=== PATIENT | male | born 1945 | race Caucasian/White ===

== ENCOUNTER 2018-06-04 09:32 | Inpatient (IN) | payer MEDICARE, BC ==
[2018-06-04 09:40] VITALS: BMI 30.7
--- NOTE | 2018-06-04 10:17 | ED PDOC ---
Arrival/HPI - General Chief Complaint: Back Pain Time Seen by Provider: 06/04/18 09:43 Historian: Patient - History of Present Illness Narrative History of Present Illness (Text): 06/04/18 10:12 72yr old male presents today with worsening low back pain. pt with a long standing history of back pain with herniated discs, states that he hasn't been very active because he was in the hospital for 9 days. pt states he was just discharged from the hospital last week and patient states the pain in the back and the left hip and has been gradually increasing. pt states today when he tried to get out of the bed he developed severe pain in the left lower back radiating in the left leg/hip. The patient told the triage nurse that he fell but the pt now states the pain was so severe that he almost fell but did not fall to the ground. Pt states he is feeling comfortable laying in bed and the pain worsens with movement. pt denies bladder or bowel incontinence. pt denies fever/chills. pt denies numbness, weakness or tingling in the extremities. pt denies chest pain or shortness of breath. denies headaches, dizziness or weakness. no abdominal pain. no n/v/d/c. pt states his appetite has been good. Symptom Onset: Gradual Symptom Course: Worsening Quality: Aching, Stabbing Severity Level: Mild Past Medical History - Provider Review Nursing Documentation Reviewed: Yes - Travel History Have you recently traveled outside [place] w/in the past 3 mons?: No - Tetanus Immunization Tetanus Immunization: Unknown - Cardiac Hx Hypertension: Yes - Psychiatric Hx Substance Use: No - Surgical History Hx Cardiac Catheterization: Yes Other/Comment: "Brain surgery" Family/Social History - Physician Review Nursing Documentation Reviewed: Yes Family/Social History: Unknown Family HX Smoking Status: Never Smoked Hx Alcohol Use: No Hx Substance Use: No Allergies/Home Meds Allergies/Adverse Reactions: Allergies morphine Allergy (Verified 06/04/18 09:42) ANGIOEDEMA Home Medications: Home Meds Medication Instructions Recorded Confirmed Aspirin [Ecotrin] 81 mg PO DAILY 06/04/18 06/04/18 Atorvastatin [Lipitor] 40 mg PO DAILY 06/04/18 06/04/18 Carvedilol [Coreg] 12.5 mg PO Q12 06/04/18 06/04/18 Hydrochlorothiazide [Microzide] 25 mg PO DAILY 06/04/18 06/04/18 Ticagrelor [Brilinta] 90 mg PO BID 06/04/18 06/04/18 Review of Systems - Review of Systems Constitutional: absent: Fatigue, Fevers Respiratory: absent: SOB, Cough Cardiovascular: absent: Chest Pain, Palpitations Gastrointestinal: absent: Abdominal Pain, Constipation, Diarrhea, Nausea, Vomiting Genitourinary Male: absent: Dysuria, Frequency, Hematuria, Urinary Output Changes Musculoskeletal: Arthralgias, Back Pain. absent: Neck Pain Skin: absent: Rash, Pruritis Neurological: absent: Headache, Dizziness Psychiatric: absent: Anxiety, Depression, Suicidal Ideation Physical Exam Vital Signs Reviewed: Yes Vital Signs Temp Pulse Resp BP Pulse Ox 06/04/18 14:15 98.3 F 76 18 136/88 99 06/04/18 11:32 78 18 115/86 99 06/04/18 09:39 97.7 F 80 17 162/87 H 97 Temperature: Afebrile Blood Pressure: Hypertensive Pulse: Regular Respiratory Rate: Normal Appearance: Positive for: Well-Appearing, Non-Toxic, Comfortable Pain Distress: None Mental Status: Positive for: Alert and Oriented X 3 - Systems Exam Head: Present: Atraumatic Mouth: Present: Moist Mucous Membranes Neck: Present: Normal Range of Motion Respiratory/Chest: Present: Clear to Auscultation, Good Air Exchange. No: Respiratory Distress, Accessory Muscle Use Cardiovascular: Present: Regular Rate and Rhythm. No: Tachycardic, Bradycardic , Gallop, Muffled Abdomen: Present: Normal Bowel Sounds. No: Tenderness, Distention, Rebound, Guarding Back: Present: Normal Inspection, Pain with Leg Raise (left leg: + straight leg raise), Other (+ left sided low back tenderness, sciatic foramen tenderness. no edema, no erythema; no ecchymosis. ). No: CVA Tenderness, Midline Tenderness, Paraspinal Tenderness Neurological: Present: GCS=15, Speech Normal, Motor Func Grossly Intact, Normal Sensory Function Psychiatric: Present: Alert, Oriented x 3, Normal Insight, Normal Concentration Medical Decision Making ED Course and Treatment: 06/04/18 10:26 72yr old male with hx of chronic back pain for years, worsening over the past 2 weeks. located in the left lower back/hip and sciatic foramen. case discussed with dr. raswant. toradol and flexeril given UA; pending. cbc; wnl cmp; wnl ct abd/pelvis: FINDINGS: No evidence of acute displaced fracture nor dislocation. . There are what appear to represent chronic appearing Schmorl's nodes and subchondral cystic changes along the L2-L3 endplates the cortical margins superior intact and the findings are not felt to represent discitis osteomyelitis . Similar but less severe and smaller changes seen along the L2-L3 and L1-L2 endplates as well. VERTEBRAE: No evidence of acute displaced fracture nor dislocation. DISCS/SPINAL CANAL/NEURAL FORAMINA: L1-2: Unremarkable. L2-3: There is disc space narrowing with broad-based bulge of the posterior annulus that extends into the proximal inferior margins of both exit foramina. Facets are prominent. There is mild flattening of the ventral surface of the thecal sac with mild bilateral lateral recess narrowing. . The overall central canal appears adequate. Proximal exit foramina are narrowed bilaterally. . L3-4: Mild posterior disc space narrowing. The small broad-based disc bulge ridge complex flattens the ventral surface of the thecal sac with mild bilateral lateral recess narrowing. The central canal appears adequate. Facets a prominent. Proximal left exit foramen is narrowed. Right exit foramen marginal. . L4-5: Mild posterior disc space narrowing. Small broad-based though slightly asymmetric disc bulge ridge complex (right slightly larger than left) with a small proximal right foraminal protrusion component. There is associated small curvilinear calcification of the annulus or posterior longitudinal ligament noted. . There is mild compressive effects on the ventral surface of the thecal sac more so on the right side with bilateral lateral recess narrowing right greater than left. Facets also mildly hypertrophic. Right exit foramen is stenotic. Left exit foramen adequate. L5-S1: Disc space height maintained. No disc herniation or significant disc bulge. Central canal appears adequate. Facets are slightly prominent however the exit foramina adequate. PARASPINAL SOFT TISSUES: Unremarkable. OTHER FINDINGS: There are small cystic changes left kidney 1 of which is exophytic arising from the posterolateral cortex mid pole left kidney. This focus demonstrates 2 hyperdense foci along its anterior border. . These foci of uncertain etiology though could represent a 2 adjacent hyperdense daughter cyst. Followup studies could be performed to exclude any solid component/ mass. Few small cysts right kidney also noted. Urinary bladder is incompletely distended which in part accounts for thick- walled appearance however muscular hypertrophy presumably contributes. Rule out cystitis. Slightly nodular appearing bilateral adrenal glands. IMPRESSION: No acute fractures. Multilevel degenerative spondylosis most notably affecting See above discussion for additional details findings and recommendations. pt reassessment; pt with continued pain upon movement. comfortable in bed. due to inability to ambulate and fall risk, will admit observational status for pain management and PT eval. case was discussed with dr meraz. accepts observational status admission pt must be admitted to tele due to hx of life vest. all aspects of this case were discussed the attending of record. impression; intractable back pain admit observation to tele as patient with life vest. 06/04/18 16:05 ekg needed for tele observation ekg; nsr at 90b/m no st elevations, + left bundle branch block; left axis deviation; NO old ekgs for comparison; without cp or sob. pt seen and evaluated by dr. umana; dong discussed EKG with dr. Law; no cardiac cath activation indicated. troponin added; trop ; 0.01 - Lab Interpretations Lab Results: 06/04/18 11:30 06/04/18 11:30 Lab Results 06/04/18 11:30: Lactate Dehydrogenase 374, Total Creatine Kinase 70, Troponin I < 0.01 06/04/18 11:30: WBC 10.2, RBC 5.07, Hgb 15.8, Hct 45.5, MCV 89.7, MCH 31.2, MCHC 34.7, RDW 12.6, Plt Count 230, MPV 11.6 H, Gran % 76.2 H, Lymph % (Auto) 12.8 L, [place] % (Auto) 9.9 H, Eos % (Auto) 0.7 L, Baso % (Auto) 0.4, Gran # 7.76 H, Lymph # (Auto) 1.3, [place] # (Auto) 1.0 H, Eos # (Auto) 0.1, Baso # (Auto) 0.04 06/04/18 11:30: Sodium 142, Potassium 3.6, Chloride 101, Carbon Dioxide 28, Anion Gap 16, BUN 16, Creatinine 1.0, Est GFR ( Amer) > 60, Est GFR (Non- Af Amer) > 60, Random Glucose 112 H, Calcium 9.1, Total Bilirubin 1.0, AST 33, ALT 35, Alkaline Phosphatase 79, Total Protein 7.5, Albumin 4.1, Globulin 3.5, Albumin/Globulin Ratio 1.2 - RAD Interpretation Radiology Orders: 06/04/18 11:27 LUMBAR SPINE W/O CONTRAST [CT] Stat - Medication Orders Current Medication Orders: Discontinued Medications Cyclobenzaprine HCl (Flexeril) 10 mg PO STAT STA Stop: 06/04/18 09:54 Last Admin: 06/04/18 10:02 Dose: 10 mg Ketorolac Tromethamine (Toradol) 30 mg IM STAT STA Stop: 06/04/18 09:54 Last Admin: 06/04/18 10:02 Dose: 30 mg MAR Pain Assessment Document 06/04/18 10:02 [facility] (Rec: 06/04/18 10:02 [facility] [id number]) Pain Reassessment Is this a pain reassessment? No Sleep Is patient sleeping during reassessment? No Presence of Pain Presence of Pain Yes Pain Scale Used Pain Scale Used Numeric Location Pain Location Body Site Back Description Description Constant Intensity of Pain at present 5 Pain Behavior Moaning Guarding IM Administration Charges Document 06/04/18 10:02 [facility] (Rec: 06/04/18 10:02 [facility] [id number]) Injection Site MAR Injection Site Left Deltoid Charges for Administration # of IM Administrations 1 Disposition/Present on Arrival - Present on Arrival Any Indicators Present on Arrival: No History of DVT/PE: No History of Uncontrolled Diabetes: No Urinary Catheter: No History of Decub. Ulcer: No History Surgical Site Infection Following: None - Disposition Have Diagnosis and Disposition been Completed?: Yes Diagnosis: Intractable back pain Disposition: HOSPITALIZED Disposition Time: 14:30 Patient Plan: Observation Patient Problems: Current Active Problems Problem Status Onset Intractable back pain Acute Condition: GOOD
[2018-06-04 11:54] LABS: ALB/GLOB RATIO 1.2 (1.1-1.8); ALBUMIN 4.1 g/dL (3.0-4.8); ALT/SGPT 35 U/L (7-56); AST/SGOT 33 U/L (17-59); BLOOD UREA NITROGEN 16 mg/dL (7-21); CALCIUM 9.1 mg/dL (8.4-10.5); GFR AFRICAN-AMERICAN > 60; GFR NON-AFRICAN AMERICAN > 60
[2018-06-04 12:08] LABS: BASO # 0.04 K/mm3 (0.0-2.0); BASO % 0.4 % (0.0-3.0); EOS # 0.1 (0.0-0.7); EOS % 0.7 % (1.5-5.0); GRAN # 7.76 (1.4-6.5); GRAN % 76.2 % (50.0-68.0); HEMOGLOBIN 15.8 g/dL (14.0-18.0); LYMPH # 1.3 (1.2-3.4); LYMPH % 12.8 % (22.0-35.0); MEAN CELL VOLUME 89.7 fl (80.0-105.0); MEAN CORPUSCULAR HEMOGLOBIN 31.2 pg (25.0-35.0); MEAN CORPUSCULAR HGB CONC 34.7 g/dl (31.0-37.0); MEAN PLATELET VOLUME 11.6 fl (7.0-11.0); MONO % 9.9 % (1.0-6.0); RBC 5.07 10^6/uL (3.5-6.1); RED CELL DISTRIBUTION WIDTH 12.6 % (11.5-14.5); WHITE BLOOD COUNT 10.2 10^3/ul (4.5-11.0)
--- NOTE | 2018-06-04 13:21 | CT ---
Date of service: 06/04/2018 PROCEDURE: CT Lumbar Spine without contrast HISTORY: Back pain COMPARISON: None available. TECHNIQUE: Axial computed tomography images were obtained of the lumbar spine without the use of intravenous contrast. Coronal and sagittal reformatted images were created and reviewed. Radiation dose: Total exam DLP = 876.69 mGy-cm. This CT exam was performed using one or more of the following dose reduction techniques: Automated exposure control, adjustment of the mA and/or kV according to patient size, and/or use of iterative reconstruction technique. FINDINGS: No evidence of acute displaced fracture nor dislocation. . There are what appear to represent chronic appearing Schmorl's nodes and subchondral cystic changes along the L2-L3 endplates the cortical margins superior intact and the findings are not felt to represent discitis osteomyelitis . Similar but less severe and smaller changes seen along the L2-L3 and L1-L2 endplates as well. VERTEBRAE: No evidence of acute displaced fracture nor dislocation. DISCS/SPINAL CANAL/NEURAL FORAMINA: L1-2: Unremarkable. L2-3: There is disc space narrowing with broad-based bulge of the posterior annulus that extends into the proximal inferior margins of both exit foramina. Facets are prominent. There is mild flattening of the ventral surface of the thecal sac with mild bilateral lateral recess narrowing. . The overall central canal appears adequate. Proximal exit foramina are narrowed bilaterally. . L3-4: Mild posterior disc space narrowing. The small broad-based disc bulge ridge complex flattens the ventral surface of the thecal sac with mild bilateral lateral recess narrowing. The central canal appears adequate. Facets a prominent. Proximal left exit foramen is narrowed. Right exit foramen marginal. . L4-5: Mild posterior disc space narrowing. Small broad-based though slightly asymmetric disc bulge ridge complex (right slightly larger than left) with a small proximal right foraminal protrusion component. There is associated small curvilinear calcification of the annulus or posterior longitudinal ligament noted. . There is mild compressive effects on the ventral surface of the thecal sac more so on the right side with bilateral lateral recess narrowing right greater than left. Facets also mildly hypertrophic. Right exit foramen is stenotic. Left exit foramen adequate. L5-S1: Disc space height maintained. No disc herniation or significant disc bulge. Central canal appears adequate. Facets are slightly prominent however the exit foramina adequate. PARASPINAL SOFT TISSUES: Unremarkable. OTHER FINDINGS: There are small cystic changes left kidney 1 of which is exophytic arising from the posterolateral cortex mid pole left kidney. This focus demonstrates 2 hyperdense foci along its anterior border. . These foci of uncertain etiology though could represent a 2 adjacent hyperdense daughter cyst. Followup studies could be performed to exclude any solid component/ mass. Few small cysts right kidney also noted. Urinary bladder is incompletely distended which in part accounts for thick-walled appearance however muscular hypertrophy presumably contributes. Rule out cystitis. Slightly nodular appearing bilateral adrenal glands. IMPRESSION: No acute fractures. Multilevel degenerative spondylosis most notably affecting See above discussion for additional details findings and recommendations.
[2018-06-04 16:37] LABS: TROPONIN I < 0.01 ng/mL
--- NOTE | 2018-06-05 13:00 | CARD ---
APPROVED REPORT Date of service: 06/04/2018 EKG Measurement Heart [id number] [id number] <Conclusion> Normal sinus rhythm Left axis deviation Left bundle branch block Abnormal ECG
--- NOTE | 2018-06-05 14:47 | CON ---
Copied To: Shlomo Aranda MD Attending MD: Shlomo Aranda MD DATE: 06/05/2018 NEUROLOGY CONSULTATION CHIEF COMPLAINT: Low back pain. HISTORY OF PRESENT ILLNESS: This is a 72-year-old man with past medical history of hypertension, pacemaker, coronary artery disease; he is on Brilinta, Ecotrin, and Lipitor for stroke prevention, who presented with low back pain radiating down to the left hip and left leg with paresthesia, aggravated by prolonged positions. He said it is so severe that he almost fell. He was given Toradol, which had seldomly helped the pain. He underwent a lumbar CT spine, which showed from L2 to L4-L5, especially mostly at L4-L5 small broad based asymmetric disk bulge with bilateral foraminal stenosis, right worse than the left and multilevel degenerative changes mostly affecting L4-L5 and L5-S1. No acute events overnight. ALLERGIES: ALLERGIC TO MORPHINE. FAMILY HISTORY: Noncontributory. MEDICATIONS: Reviewed by nurse's reconciliation sheet. PAST MEDICAL HISTORY: As above. SOCIAL HISTORY: No illicit drug use, smoking, or EtOH abuse. REVIEW OF SYSTEMS: A 14-point review of system is negative except as in the HPI. LABORATORY DATA: Sodium is 142, potassium 3.6, chloride 101, carbon dioxide 28, BUN of 16, creatinine of 1, random glucose of 112. PHYSICAL EXAMINATION: VITAL SIGNS: Temperature 97.3, pulse rate 78, blood pressure 135/91, respiratory rate of 20, oxygen saturation 98% by room air. GENERAL: The patient is sitting up in bed, has some mild low back pain, distress. HEENT: Atraumatic and normocephalic. PERRLA. Extraocular muscles intact. NECK: Supple. No JVD. No adenopathy noted. LUNGS: Clear to auscultation. No adventitious sounds. HEART: S1 and S2. Normal rate and rhythm. No murmurs, rubs, or gallops. ABDOMEN: Soft, nontender, nondistended. Bowel sounds are present. EXTREMITIES: No clubbing. No cyanosis. Peripheral pulses 2+ felt bilaterally. NEUROLOGIC: The patient is alert and oriented to person and place, month, and year. Speech is fluent without any errors. Cranial nerves II through XII intact. Motor: Moves all extremities equally. Toes are downgoing bilaterally. Sensory: Light touch, pinprick, proprioception, and vibration are intact. DTRs are 2+ throughout, 1 at both knees and ankles. Coordination: [id number] intact. Gait is deferred for now. MUSCULOSKELETAL: Lumbosacral tightness and difficulty to straight leg raise due to severe pain. ASSESSMENT AND PLAN: This is a 72-year-old man with history of pacemaker, hypertension who came in with low back pain, radiating down to the left leg with some paraesthesia, aggravated by prolonged positions. CAT scan of the lumbosacral spine showed severe multilevel degenerative changes, especially at L4-L5 with bilateral foraminal stenosis, right worse than the left. He does have evidence of lumbosacral neuritis and we will recommend; 1. Continue with Toradol 50 mg IV push p.r.n. at acute onset of back pain. 2. We will place him on Lyrica 50 mg p.o. b.i.d. for neuropathic relief and a Lidoderm patch to the lower back. 3. He will need physical therapy in terms of lumbosacral stretching, TENS unit, myofascial pain relief techniques, therapeutic exercises. 4. Pain management consult for possible epidural injection of the lumbosacral area to help relief from the pain and therapy will be outpatient physical therapy. At this time, he is clinically stable. Thank you for this consult. Shlomo Aranda MD
[2018-06-05] MEDS: Lidocaine 5% Patch TD SCH (17:49)
[2018-06-05 23:36] VITALS: O2SAT 96
[2018-06-06 11:35] VITALS: BP 169/107; PULSE 79; RESP 20; TEMP 97.9
--- NOTE | 2018-06-06 12:07 | HP ---
Copied To: Mey Zapata MD Attending MD: Mey Zapata MD DATE OF EXAM: 06/04/2018 HISTORY OF PRESENT ILLNESS: This 72-year-old male was examined at his bedside on the cardiac pang in the presence of his , his grandson, Joce and nurse, Liborio Brody. The patient presented to the [facility] ER complaining of intractable back pain. He was unable to ambulate at home and was brought for further evaluation of the above. According to the grandson, the patient has degenerative arthritis of his lower spine with a previous diagnoses of herniated discs of the lumbar spinal region as well as complaints of numbness and weakness that exacerbate with ambulation. The patient recently was discharged from [facility] after receiving newly placed coronary artery stents and the application of an external defibrillator device. The family cares for him at home on a 24 hours basis and expressed that HE HAS A SEVERE ALLERGY TO MORPHINE which in the past caused cardiac arrest that required a Code Heart for resuscitation. PAST MEDICAL HISTORY: The patient has past medical history of atherosclerotic heart disease, chronic hypertension, spinal arthritis, hyperlipidemia, degenerative arthritis and SIGNIFICANT ALLERGY TO MORPHINE. SOCIAL HISTORY: The patient is a current nondrinker, nonsmoker, non-IV drug misuser, but does have a history of smoking in the past. 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 FAMILY HISTORY: Noncontributory. OUTPATIENT MEDICATIONS: Included Ecotrin 81 mg p.o. daily, Brilinta 90 mg p.o. b.i.d., Coreg 12.5 mg p.o. b.i.d., Microzide 25 mg p.o. daily and Lipitor 40 mg p.o. daily. REVIEW OF SYSTEMS: CONSTITUTIONAL: He denied fever or chills. HEAD: Denied headache or seizure. EYES: No change in visual acuity. EARS: No hearing loss. THROAT: No swallowing difficulty. NECK: No stiffness. CARDIAC: He has a history of atherosclerotic heart disease, coronary artery stents and history of cardiac arrhythmia and is now wearing an external defibrillator device. PULMONARY: He denied cough or hemoptysis. GI: Denied hematemesis or melena. There were no reports of diarrhea. : No dysuria. SKIN: No rash. No ulcer. VASCULAR: No claudication. PSYCHOLOGIC: No anxiety. NEUROLOGIC: Marked deconditioning secondary to chronic spinal arthritis, now he complains of numbness of his legs, but no weakness on ambulation. ENDOCRINOLOGIC: Hyperlipidemia, but no knowledge of diabetes mellitus. PHYSICAL EXAMINATION: VITAL SIGNS: His physical exam showed normal sinus rhythm on the gambling monitor. His temperature was 98.3, respirations 18, pulse 76 and blood pressure 136/88 with a pulse ox of 99% on room air. HEENT: Head: Normocephalic, atraumatic. Eyes: No icterus. Ears: Clear. Throat: Noninjected. NECK: Supple. HEART: Regular S1, S2. No pathological rubs, murmurs or gallops. LUNGS: Clear to auscultation. ABDOMEN: Obese, nontender. No palpable organomegaly. No rebound, no guarding. No tenderness. EXTREMITIES: Showed no edema. No clubbing, no cyanosis. VASCULAR: Legs warm to touch. PSYCHOLOGIC: Alert. NEURO: He had a positive right leg straight raising test. No evidence of muscle weakness and sensory exam was intact. LABORATORY DATA: White count 10,200, hemoglobin 15.8, hematocrit 45.5, platelets 230,000. Sodium 142, K 3.6, chloride 101, bicarb 28, BUN 16, creatinine 1, random blood sugar 112, calcium 9.1. Bilirubin 1, AST 33,, ALT 35, alk phos 79. Lumbar spine CT was reviewed. No acute fractures of his vertebral bodies were noted. He did have multiple level degenerative spondylosis, most notably affecting L2-L3, L3-L4, L4-L5 and L5-S1. EKG was reviewed. It showed normal sinus rhythm with a left axis deviation, left bundle-branch block. IMPRESSION: A 72-year-old male admitted with intractable back pain, inability to ambulate with numbness of his leg, most likely secondary to right-sided sciatica in the setting of atherosclerotic heart disease with recent coronary artery stenting, on chronic Brilinta anticoagulation therapy, now with an external defibrillator device in place and history of hypertension, hyperlipidemia, degenerative arthritis and deconditioning. PLAN: The plan as discussed with the patient's grandson, and nurse at bedside will be to continue the outlined care of his external defibrillator device and to continue Brilinta 90 mg p.o. b.i.d., Coreg 12.5 mg p.o. b.i.d., Ecotrin 81 mg p.o. daily, HydroDIURIL 25 mg p.o. daily., Lidoderm patch will be applied to his spinal area daily, Lipitor 40 mg p.o. daily, Lyrica 50 mg p.o. b.i.d., Toradol 15 mg IV every 8 hours p.r.n. severe pain and Tylenol 650 mg p.o. every 6 hours p.r.n. [id number] pain. The patient will have consultations with Dr. Shlomo Aranda from Neurology and Dr. Marlon Bee from Pain Management. He will be advised of his SEVERE MORPHINE ALLERGY. He will continue on a heart-healthy diet. He remains at bedrest with orders for physical therapy for reconditioning of intractable low back pain. Once the patient is seen in consultation and cleared for discharge, he will return home to the care of his family who provide 24 hours supervision of this debilitated and ill patient. Greater than 75 minutes was spent in the care management, review of labs, orders, x-rays, discussion of his case with emergency room physician, Dr. Jesu Rodriguez as well as Nursing and outlining of orders. All questions were answered. Mey Zapata MD MTDD
[2018-06-06] MEDS: Lidocaine 5% Patch TD SCH (12:55)
--- NOTE | 2018-06-07 02:02 | PN ---
Copied To: Mey Zapata MD Attending MD: Mey Zapata MD DATE: 06/05/2018 SUBJECTIVE: This 72-year-old male remains hospitalized on the cardiac pang and was seen in consultation by Dr. Shlomo Aranda, who felt the patient is suffering from peripheral neuropathy secondary to spinal arthritis and intractable back pain. Given the patient's severe morphine allergy that caused a cardiac-arrest like situation in the past, he has recommended a trial of Lyrica and Lidoderm patch and the patient was scheduled for physical therapy for ambulation safety. At the time of my interview, the patient was resting more comfortably and denying any fever, chills, chest pain. No shortness of breath. PHYSICAL EXAMINATION: VITAL SIGNS: His physical exam showed him to be in a normal sinus rhythm on the monitor with a temperature of 97.3, respirations 20, pulse 78 and blood pressure 150/104. HEENT: Head normocephalic, atraumatic. Eyes: No icterus. Ears: Clear. Throat: Noninjected. NECK: Supple. HEART: Regular S1, S2. LUNGS: Clear. ABDOMEN: Soft. EXTREMITIES: No edema. SKIN: Without rash. NEUROLOGICAL: Intact. PSYCHOLOGICAL: Alert. VASCULAR: Legs warm to touch. IMPRESSION: A 72-year-old male, peripheral neuropathy, history of atherosclerotic heart disease, coronary artery stents, chronic hypertension, hyperlipidemia. The patient will continue on Lipitor, hydrochlorothiazide, Coreg, Brilinta, Ecotrin, Lidoderm and Lyrica. He will be ordered to have physical therapy and continue on fall precautions. Based on clinical response, the patient will be readied for discharge to home. All of the above was discussed with the patient and nursing. All questions were answered. Mey Zapata MD
--- NOTE | 2018-06-07 03:22 | DS ---
Copied To: Mey Zapata MD Attending MD: Mey Zapata MD DATE OF EXAM AND DATE OF DISCHARGE: 06/06/2018. FINAL DIAGNOSES: Sciatica, improved; spinal arthritis; peripheral neuropathy; stable atherosclerotic heart disease; chronic hypertension; hyperlipidemia; obesity. DISPOSITION: Home. The patient is advised to follow up with Dr. Shlomo Aranda, neurologist for outpatient neurological followup and EMG, NCV nerve conduction velocity testings. The patient given office followup in my office in 1 week. DISCHARGE MEDS: Lyrica 50 mg p.o. b.i.d., Lidoderm patch to affected area of his back pain daily, Ecotrin 81 mg p.o. daily, Brilinta 90 mg b.i.d., Coreg 12.5 mg b.i.d., hydrochlorothiazide 25 mg daily and Lipitor 40 mg p.o. at bedtime. HISTORY OF PRESENT ILLNESS: This 72-year-old male who was admitted with intractable back pain, severe morphine allergy and inability to ambulate, was seen in consultation by Dr. Shlomo Aranda who recommended Lyrica and Lidoderm with excellent results as well as physical therapy for ambulation safety, which was accomplished. At time of discharge, temperature was 97.9, respirations 20, pulse 89, blood pressure 147/90 and pulse ox 96%. The patient is discharged to home to the care of his family who provide 24-hour supervision of this patient. White count is 10,200, hemoglobin 15.8, hematocrit 45.5, platelets 230,000. Sodium 142, K 3.6, chloride 101, bicarb 28, BUN 16, creatinine 1, random blood sugar 112. The patient is aware of adjustment in medication, need for outpatient medical followup and he has been advised for any change in signs and symptoms to present directly to the [facility] ER. All questions were answered. This case was reviewed in detail with the patient; nursing, Lety Helton, registered nurse and family. All questions were answered. Mey Zapata MD
== END 2018-06-06 13:00 | disposition home or self-care (01) | DRG 552 ==
LOC: EDBD → ED 09:32 → ERH 14:17 → 2RSO 17:30 → OBSVTOIN 06-05 11:58
PROVIDERS: ADMIT Internal Medicine; ATTEND Internal Medicine
DX: M54.17 Radiculopathy, lumbosacral region (principal); M48.061 Spinal stenosis, lumbar region without neurogenic claudication; M47.896 Other spondylosis, lumbar region; M54.41 Lumbago with sciatica, right side; E78.5 Hyperlipidemia, unspecified; G62.9 Polyneuropathy, unspecified; I10 Essential (primary) hypertension; I25.10 Atherosclerotic heart disease of native coronary artery without angina pectoris; E66.9 Obesity, unspecified; Z79.82 Long term (current) use of aspirin; Z88.5 Allergy status to narcotic agent; Z87.891 Personal history of nicotine dependence; Z95.0 Presence of cardiac pacemaker; Z95.5 Presence of coronary angioplasty implant and graft; Z68.31 Body mass index [BMI] 31.0-31.9, adult